=== PATIENT | male | born 1995 | race Caucasian/White ===

== ENCOUNTER 2017-11-11 06:40 | Inpatient (IN) | payer OTHER ==
[2017-11-11] MEDS ORDERED: ACETAMINOPHEN 325 MG TAB PO (09:00)
[2017-11-11] MEDS ORDERED: morphine 2 MG INJ IV ×2 (09:00→18:00)
[2017-11-11] MEDS ORDERED: ONDANSETRON 4 MG INJ IV ×3 (09:00→18:00)
[2017-11-11] MEDS ORDERED: NACL 0.9% 3 ML SYG IV (09:00)
[2017-11-11] MEDS: DEXTROSE 5%-0.45% NACL 1,000 ML IV ×2 (09:10→20:12)
[2017-11-11] MEDS: PIPER-TAZO 3.375 GM IV (PMX) 100 ML IVPB ×3 (11:56→23:29)
[2017-11-11 12:55] LABS: ADD MAN DIFF? NO
[2017-11-11 12:57] LABS: BASOPHILS % 0.4 % (0.0-2.0); EOSINOPHILS # 0.1 10^3/ul (0.0-0.5); EOSINOPHILS % 1.8 % (0.0-7.0); HEMATOCRIT 42.7 % (42.0-52.0); HEMOGLOBIN 14.9 g/dl (14.0-18.0); LYMPHOCYTES # 1.1 10^3/ul (0.8-2.9); LYMPHOCYTES % 21.8 % (18.0-55.0); MEAN CORPUSCULAR HEMOGLOBIN 31.8 pg (29.0-33.0); MEAN CORPUSCULAR HGB CONC 34.9 g/dl (32.0-37.0); MEAN CORPUSCULAR VOLUME 91.2 fl (72.0-104.0); MEAN PLATELET VOLUME 12.1 fl (7.4-10.4); MONOCYTE # 0.4 10^3/ul (0.3-0.9); MONOCYTES % 7.4 % (0.0-13.0); NEUTROPHIL # 3.4 10^3/ul (1.6-7.5); NEUTROPHILS % 68.4 % (30.0-74.0); PLATELET COUNT 148 10^3/UL (140-415); RED BLOOD COUNT 4.68 10^6/ul (4.70-6.10); RED CELL DISTRIBUTION WIDTH 12.3 % (11.5-14.5)
[2017-11-11 13:15] LABS: MAGNESIUM 1.8 mg/dl (1.7-2.5)
[2017-11-11 13:17] LABS: ALANINE AMINOTRANSFERASE 162 IU/L (13-69); ALBUMIN 4.1 g/dl (3.3-4.9); ALBUMIN/GLOBULIN RATIO 1.51; ALKALINE PHOSPHATASE 74 IU/L (42-121); ANION GAP 11 (8-16); ASPARTATE AMINO TRANSFERASE 108 IU/L (15-46); BLOOD UREA NITROGEN 9 mg/dl (7-20); CALCIUM 9.3 mg/dl (8.4-10.2); CARBON DIOXIDE 31 mmol/L (21-31); CHLORIDE 109 mmol/L (97-110); CREATININE 0.78 mg/dl (0.61-1.24); GLUCOSE 92 mg/dl (70-220); POTASSIUM 4.3 mmol/L (3.5-5.1); SODIUM 147 mmol/L (135-144); TOTAL PROTEIN 6.8 g/dl (6.1-8.1)
[2017-11-11] MEDS ORDERED: BUPIVACAINE 0.25% (MPF) 30 ML INJ (16:13)
[2017-11-11] MEDS ORDERED: ONDANSETRON 4 MG INJ (16:45)
[2017-11-11] MEDS ORDERED: MIDAZOLAM 1 MG/ML 2 ML INJ (16:45)
[2017-11-11] MEDS ORDERED: METOCLOPRAMIDE 10 MG INJ (16:45)
[2017-11-11] MEDS ORDERED: KETOROLAC 30 MG INJ (16:45)
[2017-11-11] MEDS ORDERED: NEOSTIGMINE 3 MG/3 ML SYRINGE ×2 (16:45→17:29)
[2017-11-11] MEDS ORDERED: ROCURONIUM 50 MG INJ (16:45)
[2017-11-11] MEDS ORDERED: PROPOFOL 20 ML ×3 (16:45→17:08)
[2017-11-11] MEDS: BUPIVACAINE 0.25%/EPI (MDV) 50 ML VIAL INJ (17:18)
[2017-11-11] MEDS ORDERED: ROPIVACAINE 0.5 % 30 ML VIAL (17:21)
[2017-11-11] MEDS ORDERED: GLYCOPYRROLATE 0.4 MG INJ (17:29)
[2017-11-11] MEDS ORDERED: MIDAZOLAM 1 MG/ML 2 ML INJ IV (17:30)
[2017-11-11] MEDS ORDERED: DIPHENHYDRAMINE 50 MG INJ IV (17:30)
[2017-11-11] MEDS ORDERED: MEPERIDINE 25 MG INJ IV (17:30)
[2017-11-11] MEDS ORDERED: HYDROmorphONE (0.2 MG/ML) 10ML SYG IV ×3 (17:30)
[2017-11-11] MEDS ORDERED: MEPERIDINE 100 MG INJ (17:59)
[2017-11-11] MEDS: OXYCODONE/ACETAMINOPHEN (5/325) TAB PO (22:52)
[2017-11-11] MEDS: morphine LIQ (10 MG/5 ML) CUP PO (23:35)
[2017-11-12] MEDS: PANTOPRAZOLE 40 MG INJ IV (05:35)
[2017-11-12] MEDS: PIPER-TAZO 3.375 GM IV (PMX) 100 ML IVPB ×3 (05:35→18:13)
[2017-11-12 05:49] LABS: ADD MAN DIFF? NO
[2017-11-12 05:54] LABS: BASOPHILS % 0.2 % (0.0-2.0); EOSINOPHILS # 0.1 10^3/ul (0.0-0.5); EOSINOPHILS % 0.9 % (0.0-7.0); HEMATOCRIT 41.7 % (42.0-52.0); HEMOGLOBIN 14.4 g/dl (14.0-18.0); LYMPHOCYTES % 12.8 % (18.0-55.0); MEAN CORPUSCULAR HEMOGLOBIN 31.4 pg (29.0-33.0); MEAN CORPUSCULAR HGB CONC 34.5 g/dl (32.0-37.0); MEAN PLATELET VOLUME 12.2 fl (7.4-10.4); MONOCYTE # 0.5 10^3/ul (0.3-0.9); MONOCYTES % 6.7 % (0.0-13.0); NEUTROPHIL # 6.4 10^3/ul (1.6-7.5); NEUTROPHILS % 79.2 % (30.0-74.0); PLATELET COUNT 142 10^3/UL (140-415); RED BLOOD COUNT 4.58 10^6/ul (4.70-6.10); RED CELL DISTRIBUTION WIDTH 11.9 % (11.5-14.5)
[2017-11-12 05:54] LABS: WHITE BLOOD COUNT 8.1 10^3/ul (4.8-10.8)
[2017-11-12] MEDS: morphine LIQ (10 MG/5 ML) CUP PO ×2 (06:29→13:51)
[2017-11-12 06:30] LABS: ALANINE AMINOTRANSFERASE 148 IU/L (13-69); ALBUMIN 4.1 g/dl (3.3-4.9); ALBUMIN/GLOBULIN RATIO 1.41; ALKALINE PHOSPHATASE 70 IU/L (42-121); ANION GAP 16 (8-16); ASPARTATE AMINO TRANSFERASE 96 IU/L (15-46); BILIRUBIN,INDIRECT 1.6 mg/dl (0-1.1); BILIRUBIN,TOTAL 1.6 mg/dl (0.2-1.3); BLOOD UREA NITROGEN 4 mg/dl (7-20); CALCIUM 9.2 mg/dl (8.4-10.2); CARBON DIOXIDE 29 mmol/L (21-31); CHLORIDE 104 mmol/L (97-110); CREATININE 0.77 mg/dl (0.61-1.24); GLUCOSE 92 mg/dl (70-220); MAGNESIUM 1.6 mg/dl (1.7-2.5); POTASSIUM 3.7 mmol/L (3.5-5.1); SODIUM 145 mmol/L (135-144)
[2017-11-12] MEDS: OXYCODONE/ACETAMINOPHEN (5/325) TAB PO ×3 (09:24→22:35)
[2017-11-12] MEDS: DEXTROSE 5%-0.45% NACL 1,000 ML IV (12:01)
[2017-11-13] MEDS: PIPER-TAZO 3.375 GM IV (PMX) 100 ML IVPB ×2 (00:09→05:39)
[2017-11-13] MEDS: DEXTROSE 5%-0.45% NACL 1,000 ML IV (00:10)
[2017-11-13] MEDS: PANTOPRAZOLE 40 MG INJ IV (05:40)
[2017-11-13] MEDS: OXYCODONE/ACETAMINOPHEN (5/325) TAB PO (07:27)
[2017-11-13] MEDS: MAGNESIUM HYDROXIDE 30ML CUP PO (08:44)
[2017-11-13] MEDS: DOCUSATE SODIUM 100 MG CAP PO (08:44)
== END 2017-11-13 11:30 | disposition home or self-care (01) | DRG 419 ==
LOC: MS1 06:40
PROVIDERS: Family Medicine
PROC: 0FT44ZZ Resection of Gallbladder, Percutaneous Endoscopic Approach (ICD-10-PCS; principal; 2017-11-11 16:46)
DX: K80.00 Calculus of gallbladder with acute cholecystitis without obstruction (principal); F12.10 Cannabis abuse, uncomplicated; F17.200 Nicotine dependence, unspecified, uncomplicated
CPT/HCPCS: 80053; 83735; 85025; 88304